=== PATIENT | female | born 2000 | race Caucasian/White ===

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

== ENCOUNTER 2022-06-20 09:43 | Emergency (ER) | payer BC ==
[~2022-06-20] VITALS: Ht 165.1 cm; Wt 54.4 kg
[2022-06-20 11:08] VITALS: BP_SYST 115
--- NOTE | 2022-06-20 11:53 | NUR ---
Swabbed for COVID & FLU. Sent to lab.
[2022-06-20] MEDS ORDERED: OFLO5DRO6 EACH EYE (12:51)
[2022-06-20] MEDS ORDERED: PSEU30TA36 PO (12:51)
[2022-06-20] MEDS ORDERED: IBUP-1969 PO (12:51)
[2022-06-20 13:30] VITALS: BP_SYST 115
== END 2022-06-20 13:30 | disposition home or self-care (01) ==
LOC: SED 09:43
DX: H10.9 Unspecified conjunctivitis (principal); J32.9 Chronic sinusitis, unspecified; R05.9 Cough, unspecified; R09.81 Nasal congestion; Z79.899 Other long term (current) drug therapy; Z20.822 Contact with and (suspected) exposure to COVID-19
CPT/HCPCS: 36415; 71045; 86308-TC; 99284